=== PATIENT | female | born 1955 | race Caucasian/White ===

== ENCOUNTER 2019-01-28 16:05 | Emergency (ER) | payer SELFPAY ==
[2019-01-28 16:11] VITALS: TEMP 98; BMI 24.0
--- NOTE | 2019-01-28 16:16 | PDOC ---
Rapid Medical Evaluation Time Seen by Provider: 01/28/19 16:07 Medical Evaluation: 01/28/19 16:08 63 year old female c/o numbness and weakness to left leg for 20 days. send by 2 [facility], [place] for evaluation pmhx: diabetes, hypertension PE: patient alert ox3. walking without diificulty A: leg weakness P patient to the ER for further management of care. Discharge Disposition - Diagnosis Leg weakness Qualifiers: Laterality: left Qualified Code(s): R29.898 - Other symptoms and signs involving the musculoskeletal system - Referrals Referrals: Sanam Castaneda MD [Primary Care Provider] - - Patient Instructions - Post Discharge Activity
--- NOTE | 2019-01-28 18:22 | PDOC ---
History of Present Illness - General Chief Complaint: Weakness Stated Complaint: UNSTEADY GAIT Time Seen by Provider: 01/28/19 16:07 History Source: Patient, Harness [employer]er Used Exam Limitations: Language Barrier - History of Present Illness Initial Comments: 01/28/19 18:20 Pt is a 63yo F with PMH of NIDDM, HTN, HLD presenting to ED with complaints of L leg cramps. Pt states that she has been having leg cramps for the past 20 days or so, intermittent, mainly felt with walking. She feels as if her leg might give in when she walks. She feels the cramping mainly in the calf. Has some occasional numbness. Denies pain, injury, weakness, color changes, swelling , chest pain, sob, abdominal pain, recent illnesses. Per notes from PMD office, pt feels the cramping when she wears high heels. PMD: Isidoro PMH: see hpi PSH: none Meds: metformin, glyburide, atorvastatin, lisinopril Allergies: nkda Social: denies Past History - Past Medical History Allergies/Adverse Reactions: Allergies Allergy/AdvReac Type Severity Reaction Status Date / Time No Known Allergies Allergy Verified 01/28/19 16:09 Home Medications: Ambulatory Orders Glyburide 5 mg PO DAILY 01/28/19 Lisinopril [Prinivil -] 40 mg PO DAILY 01/28/19 Metformin HCl [Glucophage] 1,000 mg PO BID 01/28/19 Simvastatin 10 mg PO DAILY 01/28/19 COPD: No Diabetes: Yes - Immunization History Immunization Up to Date: Yes - Suicide/Smoking/Psychosocial Hx Smoking History: Never smoked Hx Alcohol Use: No Drug/Substance Use Hx: No Review of Systems - Review of Systems Constitutional: No: Symptoms Reported HEENTM: No: Symptoms Reported Respiratory: No: Symptoms reported Cardiac (ROS): No: Symptoms Reported ABD/GI: No: Symptoms Reported : No: Symptoms Reported Musculoskeletal: Yes: See HPI, Muscle Pain Integumentary: No: Symptoms Reported Neurological: Yes: See HPI *Physical Exam - Vital Signs Last Vital Signs Temp Pulse Resp BP Pulse Ox 98.0 F 78 18 147/84 96 01/28/19 16:09 01/28/19 16:09 01/28/19 16:09 01/28/19 16:09 01/28/19 16:09 - Physical Exam General Appearance: Yes: Nourished, Appropriately Dressed. No: Apparent Distress HEENT: positive: EOMI, RAMEZ, Normal ENT Inspection Neck: positive: Trachea midline, Supple. negative: Lymphadenopathy (R), Lymphadenopathy (L) Respiratory/Chest: positive: Lungs Clear, Normal Breath Sounds. negative: Crackles, Wheezing Cardiovascular: positive: Regular Rhythm, Regular Rate, S1, S2. negative: Edema , JVD, Murmur Vascular Pulses: Carotid (R): 2+, Carotid (L): 2+, Dorsalis-Pedis (R): 2+, Doralis-Pedis (L): 2+ Gastrointestinal/Abdominal: positive: Normal Bowel Sounds, Soft. 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 Pt states that she has been having leg cramps for the past 20 days or so, intermittent, mainly felt with walking. She feels as if her leg might give in when she walks. She feels the cramping mainly in the calf. Has some occasional numbness. Denies pain, injury, weakness, color changes, swelling , chest pain, sob, abdominal pain, recent illnesses. Per notes from PMD office, pt feels the cramping when she wears high heels. Vitals: wnl PE: benign Ddx includes but not limited to DVT, vasculitis, PAD, electrolyte/metabolic abnormality, cva/tia, neuropathy, demyelinating disease low suspicion for cva/tia given chronicity and onset of symptoms -labs -us labs wnl. US- negative for DVT. leg cramping is of unknown etiology however electrolytes are normal, pt does not have dvt, is neurologically intact. could be PAD or neuropathy. pt can fu outpt for studies, does not require admission. pt not having complaints. is able to ambulate without issues. stable for dc home. given neurology f/u. pt agrees to plan. given return precautions. *DC/Admit/Observation/Transfer Diagnosis at time of Disposition: Leg cramping Leg weakness Qualifiers: Laterality: left Qualified Code(s): R29.898 - Other symptoms and signs involving the musculoskeletal system - Discharge Dispostion Disposition: HOME Condition at time of disposition: Good Decision to Admit order: No - Referrals Referrals: Sanam Castaneda MD [Primary Care Provider] - Allen Hardy DO [Staff Physician] - - Patient Instructions Printed Discharge Instructions: DI for Leg Pain Additional Instructions: Hoy te vieron en la elicia de emergencias por calambres en las piernas. [place] anlisis de alvarez fue normal y la ecografa tambin es normal. No s la causa exacta de los calambres, beverly podra deberse a los nervios, msculos o tendones. Recomiendo seguir con un neurlogo. La informacin se proporciona a continuacin. Puede oseas Tylenol para el dolor segn sea necesario. Eleve las piernas por la noche, no use zapatos ajustados. Regrese a la elicia de emergencias si los calambres empeoran, no puede caminar, est empeorando el adormecimiento o si aparece algn sntoma nuevo. Analilia You were seen in the emergency room today for leg cramping. Your blood work was normal and the ultrasound is also normal. I do not know the exact cause of the cramping but it could be due to the nerves, muscles or tendons. I recommend following up with a neurologist. The information is provided below. You can take Tylenol for the pain as needed. Elevate the legs at night, do not wear tight shoes. Come back to the emergency room if cramping gets worse, you are unable to walk, you have worsening numbness or if any new concerning symptom develops. Thank you Print Language: AMERICAN - Post Discharge Activity
[2019-01-28 18:54] LABS: BASO % 0.2 % (0-2.0); EOS % 0.8 % (0-4.5); HEMATOCRIT 41.3 % (32.4-45.2); HEMOGLOBIN 13.6 GM/dL (10.7-15.3); LYMPH % 22.5 % (8-40); MCH 30.4 pg (25.7-33.7); MEAN CELL VOLUME 92.2 fl (80-96); MEAN PLT VOLUME 9.9 fl (7.5-11.1); MONO % 7.5 % (3.8-10.2); PLATELET COUNT 217 K/MM3 (134-434); RBC 4.49 M/mm3 (3.60-5.2); RDW 14.4 % (11.6-15.6); WHITE BLOOD COUNT 7.6 K/mm3 (4.0-10.0)
[2019-01-28 19:24] LABS: ALBUMIN 0.9 g/dl (3.4-5.0); ALK PHOS 80 U/L (45-117); ANION GAP 10 MMOL/L (8-16); BILIRUBIN,TOTAL 0.4 mg/dL (0.2-1); BLOOD UREA NITROGEN 20 mg/dL (7-18); CALCIUM 8.7 mg/dL (8.5-10.1); CHLORIDE 109 mmol/L (98-107); CO2 23 mmol/L (21-32); CREATININE 0.7 mg/dL (0.55-1.3); GLUCOSE,RANDOM 74 mg/dL (74-106); MAGNESIUM 2.2 mg/dL (1.8-2.4); POTASSIUM 3.9 mmol/L (3.5-5.1); SGOT/AST 28 U/L (15-37); SGPT/ALT 24 U/L (13-61); SODIUM 142 mmol/L (136-145); TOT PROT 7.2 g/dl (6.4-8.2)
--- NOTE | 2019-01-28 19:27 | PDOC ---
Documentation entered by Merari Alcaraz SCRIBE, acting as scribe for Andres Fowler MD. Andres Fowler MD: This documentation has been prepared by the Lissa grey Adrianna, SCRIBE, under my direction and personally reviewed by me in its entirety. I confirm that the documentation accurately reflects all work, treatment, procedures, and medical decision making performed by me. Attending Attestation - Resident Resident Name: Stephanie Izaguirre - ED Attending Attestation I have performed the following: I have examined & evaluated the patient, The case was reviewed & discussed with the resident, I agree w/resident's findings & plan, Exceptions are as noted - HPI HPI: The patient is a 63 year old female, with a significant PMH of NIDDM, HTN, and HLD, who presents to the emergency department today complaining of left lower extremity cramping for 20 days. Patient notes that the cramps are intermittent in nature, and is unsure how long they last. She states that the cramps are exacerbated with walking, and are alleviated while at rest. She notes her leg feels as if it is going to give out when she is walking. Patient endorses occasional tingling down the LLE. She denies any trauma to the area, and denies any history of stroke. The patient denies chest pain, shortness of breath, headache and dizziness. Denies fever, chills, nausea, vomit, diarrhea and constipation. Denies dysuria, frequency, urgency and hematuria. Allergies: NKA Past surgical history: None reported Social history: No reported PCP: Dr. Sanam Holguin 01/28/19 19:27 No pain that initiates at rest - Physicial Exam PE: 01/28/19 20:50 Well appearing, NAD, AOx3 No visible lesions, no ulcer, tissue loss, gangrene SILT Distal cap refill <2sec +PT, DP pulses Calf soft, non-tender - Medical Decision Making 01/28/19 20:53 Describes likely claudication, no high risk features, Consider electrolyte disturbance, msk cramping, venous vs arterial thrombosis or stenosis, diabetic neuropathy f/u imaging, labs f/u pcp
[2019-01-28 21:08] VITALS: BP 135/92; PULSE 64
--- NOTE | 2019-01-29 11:24 | EKG ---
Test Reason : Blood Pressure : / mmHG Vent. Rate : 062 BPM Atrial Rate : 062 BPM P-R Int : 172 ms QRS Dur : 082 ms QT Int : 408 ms P-R-T Axes : 040 001 007 degrees QTc Int : 414 ms POOR DATA QUALITY, INTERPRETATION MAY BE ADVERSELY AFFECTED SINUS RHYTHM WITH OCCASIONAL PREMATURE VENTRICULAR COMPLEXES NO PREVIOUS ECGS AVAILABLE Confirmed by MALIK COLLINS MD ([id number]) on 01/29/2019 11:24:05 AM Referred By: Confirmed By:MALIK COLLINS MD
== END 2019-01-28 21:09 | disposition home or self-care (01) ==
LOC: JER 16:05
DX: R29.898 Other symptoms and signs involving the musculoskeletal system (principal); R25.2 Cramp and spasm; I10 Essential (primary) hypertension; E11.9 Type 2 diabetes mellitus without complications; Z79.84 Long term (current) use of oral hypoglycemic drugs; E78.5 Hyperlipidemia, unspecified
CPT/HCPCS: 36415; 80053; 83735; 85025; 93005; 93010; 93971-TC; 99282-25